=== PATIENT | female | born 1970 | race Caucasian/White ===

== ENCOUNTER → 2017-04-05 | Outpatient (CLI) | payer MEDICARE, MEDICAID ==
[~2017-04-05] MED LIST: HYDR-318 PO; VENL75CA58 PO
--- NOTE | 2017-04-06 12:24 | RADIOLOGY IMAGING REPORT ---
FACILITY: [facility] - [place] PATIENT NAME: CK RODRIGUEZ : [id number] MR: [id number] V: [id number] EXAM DATE: [id number] ORDERING PHYSICIAN: KESHAWN REYES TECHNOLOGIST: Lu Morales PROCEDURE:BILATERAL DIGITAL SCREENING MAMMOGRAM WITH CAD ASSISTED INTERPRETATION AND 3D BREAST TOMOSYNTHESIS. COMPARISON:None. This is the patient's baseline mammogram. INDICATIONS:SCREENING FINDINGS: A small amount of fibroglandular tissue is seen throughout the breasts. There is no demonstration of malignant appearing mass, malignant appearing calcification or other secondary sign of malignancy in either breast. DIAGNOSTIC CATEGORY 1--NEGATIVE. RECOMMENDATIONS: ROUTINE MAMMOGRAM AND CLINICAL EVALUATION. IMPRESSION: Bi-RADS 1: No significant abnormality is seen. Images were reviewed with R2CAD and 3D breast tomosynthesis. Dictated by: Trisha Real M.D. on 04/05/2017 at 16:22 Transcribed by: TATE on 04/05/2017 at 20:50 Approved by: Trisha Real M.D. on 04/06/2017 at 12:23 [facility]
== END ==
LOC: MAMO 03-22 01:30
PROVIDERS: ATTEND Physician Assistant
DX: Z12.31 Encounter for screening mammogram for malignant neoplasm of breast (principal)
CPT/HCPCS: 77063; 77067

== ENCOUNTER 2017-12-19 23:11 | Emergency (ER) | payer MEDICARE, MEDICAID ==
--- NOTE | 2017-12-19 23:14 | ER Report ---
History and Physical Time Seen By MD: 23:14 HPI/ROS CHIEF COMPLAINT: Right flank pain HISTORY OF PRESENT ILLNESS: 47-year-old female presents ambulatory to the ER complaining of severe onset of right flank pain for the last several hours. She notes onset of mild pain in her right flank at 3 PM yesterday. She's been vomiting multiple times. She is doubled over in pain, unable to stand up straight. She is holding her right flank. She notes 10/10 pain. She states a history of kidney stones in the past. REVIEW OF SYSTEMS: Respiratory: No cough, no dyspnea. Cardiovascular: No chest pain, no palpitations. Gastrointestinal: As above Musculoskeletal: As above Allergies: Coded Allergies: No Known Drug Allergies (Unverified , 01/18/15) Home Meds Active Scripts Ondansetron (ZOFRAN ODT) 4 Mg Tab.rapdis, 4 MG PO every 6 hours PRN for NAUSEA/VOMITING, #15 TAB TAKE 1 TABLET BY MOUTH EVERY 12 HOURS Prov:LALY LANG DO 12/20/17 Hydrocodone Bit/Acetaminophen (HYDROCODON-ACETAMINOPHEN 5-325) 1 Each Tablet, 1 EACH PO Q4-6H PRN for PAIN, #20 TAKE ONE TABLET BY MOUTH EVERY 4-6 HOURS NEEDED FOR PAIN Prov:LALY LANG DO 12/20/17 Discontinued Reported Medications Venlafaxine Hcl (EFFEXOR XR) 75 Mg Cap.er.24h, 225 MG PO QDAY 01/18/15 Discontinued Scripts Hydrocodone/Acetaminophen (Lortab 7.5-325 mg Tablet) 1 Each Tablet, 1-2 TAB PO Q6H for PAIN, #20 Prov:JAKE RODRIGUEZ DO 01/18/15 Past Medical/Surgical History Kidney stones, depression Reviewed Nurses Notes: Yes Old Medical Records Reviewed: Yes Hx Smoking: Yes Smoking Status: Current: Every Day Smoker Hx Substance Use Disorder: No Constitutional Vital Sign - Last 24 Hours 12/19/17 12/19/17 12/20/17 12/20/17 23:16 23:56 00:11 00:23 Temp 97.4 Pulse 80 91 82 Resp 22 B/P (MAP) 132/93 125/82 (96) Pulse Ox 98 88 99 O2 Delivery Room Air 12/20/17 12/20/17 12/20/17 12/20/17 00:26 00:40 00:41 01:00 Pulse 89 85 77 B/P (MAP) 125/92 (103) 120/82 (95) Pulse Ox 100 100 12/20/17 12/20/17 12/20/17 12/20/17 01:19 01:30 01:40 01:42 Pulse 86 B/P (MAP) 117/84 (95) 99/64 (76) 87/63 (71) Pulse Ox 98 12/20/17 02:00 Pulse 85 B/P (MAP) 99/57 (71) Pulse Ox 100 Intake and Output 0 12/19/17 12/19/17 12/20/17 15:00 23:00 07:00 Intake Total 1000 ml Balance 1000 ml Physical Exam Vital signs stable, afebrile, pulse ox normal General Appearance: The patient is alert, has no immediate need for airway protection and no current signs of toxicity. Moderate distress. Skin slightly pale, dry HEENT: Pupils equal and round no injection. oropharynx without redness or exudate Respiratory: Chest is non tender, lungs are clear to auscultation. Cardiac: regular rate and rhythm Gastrointestinal: Abdomen is soft and non tender, no masses, bowel sounds normal. + Right CVA tenderness Musculoskeletal: Neck: Neck is supple and non tender. Extremities have full range of motion and are non tender. Skin: No rashes or lesions. DIFFERENTIAL DIAGNOSIS: After history and physical exam differential diagnosis was considered for flank pain including but not limited to musculoskeletal causes, kidney stone, pyelonephritis, shingles, and intra-abdominal causes such as diverticulitis and appendicitis. Medical Decision Making Data Points Result Diagram: 12/19/17 2344 12/19/17 2344 Laboratory Hematology Test 12/19/17 23:44 12/20/17 00:25 Red Blood Count 4.97 M/uL (4.17-5.56) Mean Corpuscular Volume 80.1 fL (80.0-96.0) Mean Corpuscular Hemoglobin 28.4 pg (26.0-33.0) Mean Corpuscular Hemoglobin Concent 35.5 g/dL (32.0-36.0) Red Cell Distribution Width 13.1 % (11.5-14.5) Mean Platelet Volume 8.1 fL (7.2-11.1) Neutrophils (%) (Auto) 66.2 % (39.4-72.5) Lymphocytes (%) (Auto) 24.5 % (17.6-49.6) Monocytes (%) (Auto) 7.4 % (4.1-12.4) Eosinophils (%) (Auto) 0.0 % (0.4-6.7) Basophils (%) (Auto) 1.9 % (0.3-1.4) Nucleated RBC Relative Count (auto) 0.0 /100WBC Neutrophils # (Auto) 3.5 K/uL (2.0-7.4) Lymphocytes # (Auto) 1.3 K/uL (1.3-3.6) Monocytes # (Auto) 0.4 K/uL (0.3-1.0) Eosinophils # (Auto) 0.0 K/uL (0.0-0.5) Basophils # (Auto) 0.1 K/uL (0.0-0.1) Nucleated RBC Absolute Count (auto) 0.00 K/uL Sodium Level 138 mmol/L (137-145) Potassium Level 3.7 mmol/L (3.5-5.0) Chloride Level 105 mmol/L (98-107) Carbon Dioxide Level 22 mmol/L (22-31) Blood Urea Nitrogen 18 mg/dl (7-18) Creatinine 0.80 mg/dl (0.52-1.04) Glomerular Filtration Rate Calc > 60.0 Random Glucose 95 mg/dl (75-110) Calcium Level 9.1 mg/dl (8.4-10.2) Total Bilirubin 0.7 mg/dl (0.2-1.3) Aspartate Amino Transf (AST/SGOT) 22 U/L (0-35) Alanine Aminotransferase (ALT/SGPT) 31 U/L (0-56) Alkaline Phosphatase 49 U/L (0-126) Total Protein 6.9 g/dl (6.3-8.2) Albumin 3.9 g/dl (3.5-5.0) Amylase Level 47 U/L (0-110) Lipase 71 U/L (23-300) Urine Color Yellow Urine Clarity Slightly-cloudy Urine pH 5.0 pH (4.8-9.5) Urine Specific [place] 1.026 Urine Protein 30 mg/dL (NEGATIVE) Urine Glucose (UA) Negative mg/dL (NEGATIVE) Urine Ketones 80 mg/dL (NEGATIVE) Urine Blood Large (NEGATIVE) Urine Nitrite Negative (NEGATIVE) Urine Bilirubin Negative (NEGATIVE) Urine Urobilinogen 2.0 mg/dL (0.2-1.9) Urine Leukocyte Esterase Negative (NEGATIVE) Urine RBC 213 /HPF (0-2/HPF) Urine WBC 2 /HPF (0-5/HPF) Urine Squamous Epithelial Cells Many /LPF (</=FEW) Urine Bacteria Few /HPF (NONE-FEW) Urine Mucus Few /HPF (NONE-FEW) Urine HCG, Qualitative Negative (NEGATIVE) Chemistry Test 12/19/17 23:44 12/20/17 00:25 White Blood Count 5.3 k/uL (4.5-11.0) Red Blood Count 4.97 M/uL (4.17-5.56) Hemoglobin 14.1 g/dL (12.0-16.0) Hematocrit 39.8 % (34.0-47.0) Mean Corpuscular Volume 80.1 fL (80.0-96.0) Mean Corpuscular Hemoglobin 28.4 pg (26.0-33.0) Mean Corpuscular Hemoglobin Concent 35.5 g/dL (32.0-36.0) Red Cell Distribution Width 13.1 % (11.5-14.5) Platelet Count 241 K/uL (150-450) Mean Platelet Volume 8.1 fL (7.2-11.1) Neutrophils (%) (Auto) 66.2 % (39.4-72.5) Lymphocytes (%) (Auto) 24.5 % (17.6-49.6) Monocytes (%) (Auto) 7.4 % (4.1-12.4) Eosinophils (%) (Auto) 0.0 % (0.4-6.7) Basophils (%) (Auto) 1.9 % (0.3-1.4) Nucleated RBC Relative Count (auto) 0.0 /100WBC Neutrophils # (Auto) 3.5 K/uL (2.0-7.4) Lymphocytes # (Auto) 1.3 K/uL (1.3-3.6) Monocytes # (Auto) 0.4 K/uL (0.3-1.0) Eosinophils # (Auto) 0.0 K/uL (0.0-0.5) Basophils # (Auto) 0.1 K/uL (0.0-0.1) Nucleated RBC Absolute Count (auto) 0.00 K/uL Glomerular Filtration Rate Calc > 60.0 Calcium Level 9.1 mg/dl (8.4-10.2) Total Bilirubin 0.7 mg/dl (0.2-1.3) Aspartate Amino Transf (AST/SGOT) 22 U/L (0-35) Alanine Aminotransferase (ALT/SGPT) 31 U/L (0-56) Alkaline Phosphatase 49 U/L (0-126) Total Protein 6.9 g/dl (6.3-8.2) Albumin 3.9 g/dl (3.5-5.0) Amylase Level 47 U/L (0-110) Lipase 71 U/L (23-300) Urine Color Yellow Urine Clarity Slightly-cloudy Urine pH 5.0 pH (4.8-9.5) Urine Specific [place] 1.026 Urine Protein 30 mg/dL (NEGATIVE) Urine Glucose (UA) Negative mg/dL (NEGATIVE) Urine Ketones 80 mg/dL (NEGATIVE) Urine Blood Large (NEGATIVE) Urine Nitrite Negative (NEGATIVE) Urine Bilirubin Negative (NEGATIVE) Urine Urobilinogen 2.0 mg/dL (0.2-1.9) Urine Leukocyte Esterase Negative (NEGATIVE) Urine RBC 213 /HPF (0-2/HPF) Urine WBC 2 /HPF (0-5/HPF) Urine Squamous Epithelial Cells Many /LPF (</=FEW) Urine Bacteria Few /HPF (NONE-FEW) Urine Mucus Few /HPF (NONE-FEW) Urine HCG, Qualitative Negative (NEGATIVE) Urinalysis Test 12/20/17 00:25 Urine Color Yellow Urine Clarity Slightly-cloudy Urine pH 5.0 pH (4.8-9.5) Urine Specific [place] 1.026 Urine Protein 30 mg/dL (NEGATIVE) Urine Glucose (UA) Negative mg/dL (NEGATIVE) Urine Ketones 80 mg/dL (NEGATIVE) Urine Blood Large (NEGATIVE) Urine Nitrite Negative (NEGATIVE) Urine Bilirubin Negative (NEGATIVE) Urine Urobilinogen 2.0 mg/dL (0.2-1.9) Urine Leukocyte Esterase Negative (NEGATIVE) Urine RBC 213 /HPF (0-2/HPF) Urine WBC 2 /HPF (0-5/HPF) Urine Squamous Epithelial Cells Many /LPF (</=FEW) Urine Bacteria Few /HPF (NONE-FEW) Urine Mucus Few /HPF (NONE-FEW) Urine HCG, Qualitative Negative (NEGATIVE) EKG/Imaging Imaging Results: CT scan of the abdomen and pelvis without IV contrast was obtained. The results of the study are CT of the abdomen and pelvis without contrast: Indication: Right flank pain. History of renal calculi. Technique: Helical CT was performed through the abdomen and pelvis without contrast. Multiplanar reconstructions are reviewed. One of the following dose optimization techniques was utilized in the performance of this exam: Automated exposure control; adjustment of the mA and/or kV according to the patient's size; or use of an iterative reconstruction technique. Specific details can be referenced in the facility's radiology CT exam operational policy. Comparison: None. Lower lung roy: No parenchymal or pleural abnormality is identified. Liver: Normal in size, shape, and density. Gallbladder/biliary tree: The gallbladder is normal in size and homogeneous in density. The bile ducts are normal in caliber. Pancreas: Normal in size, shape, and density. Spleen: Normal in size, shape, and density. Adrenal glands: Within normal limits. Kidneys/urinary bladder: There is a 4 mm nonobstructing calculus at the lower pole of the right kidney. There is mild dilatation of the right intrarenal collecting structures and right ureter, consistent with recent obstruction. However, there is no evidence of calculus within the right ureter. There is a 3 mm calculus in the bladder lumen, which may have recently passed. The right kidney is otherwise unremarkable. There is a tiny nonobstructing calculus in the left kidney. There is no evidence of left ureteral calculus or obstruction. The left kidney is otherwise unremarkable. The bladder is otherwise unremarkable. Intestinal structures: Unremarkable, as visualized. There are no signs of obstruction or focal inflammatory changes. Pelvis: The uterus and adnexal structures are unremarkable, as visualized. Aorta and vascular structures: Within normal limits. Ascites or fluid collections: None seen. Skeletal structures: There is an intramedullary anita in the proximal right femur. No acute skeletal deformity is identified. Impression: There is a 4 mm nonobstructing calculus in the right kidney. There is mild dilatation of the right intrarenal collecting structures and right ureter, consistent with recent obstruction. No right ureteral calculi are identified. However, there is a 3 mm calculus in the bladder lumen, which may have recently passed. The study was read by the radiologist. I viewed the images myself on the PACS system. ED Course/Re-evaluation Clinical Indication for ER IV: Hydration, IV Access ED Course Patient was admitted to an examination room. H&P was done. The differential diagnoses was considered. On clinical examination. Patient has right CVA tenderness. Clinically she has a kidney stone. She is treated with IV fluid hydration, Zofran, Toradol, Dilaudid. She continues to have vomiting and pain. She's given Phenergan and additional Dilaudid. There is gross hematuria noted on her urinalysis. She sent for a CT scan of the abdomen and pelvis without contrast, which shows a recently passed stone in the right ureter and there is a 3 mm stone in the bladder. Consistent with her clinical presentation. She reports her pain is much improved. Patient's discharged home with hydrocodone and Zofran for symptomatically relief. She is advised to follow-up with urology. Decision to Disposition Date: Dec 20, 2017 Decision to Disposition Time: 02:05 Depart Departure Latest Vital Signs Vital Signs Date Time Temp Pulse Resp B/P (MAP) Pulse Ox O2 Delivery O2 Flow Rate FiO2 12/20/17 02:00 85 99/57 (71) 100 12/19/17 23:16 97.4 22 Room Air Impression: Primary Impression: Renal colic on right side Additional Impression: History of kidney stones Condition: Improved Disposition: HOME OR SELF-CARE Referrals: KESHAWN REYES PA-C (PCP) JUNG HILL MD DOMENICA LITTLEJOHN MD New Scripts Ondansetron (ZOFRAN ODT) 4 Mg Tab.rapdis 4 MG PO every 6 hours PRN for NAUSEA/VOMITING, #15 TAB TAKE 1 TABLET BY MOUTH EVERY 12 HOURS Prov: LALY LANG DO 12/20/17 Hydrocodone Bit/Acetaminophen (HYDROCODON-ACETAMINOPHEN 5-325) 1 Each Tablet 1 EACH PO Q4-6H PRN for PAIN, #20 TAKE ONE TABLET BY MOUTH EVERY 4-6 HOURS NEEDED FOR PAIN Prov: LALY LANG DO 12/20/17 Patient Instructions: Kidney Stones (ED) Additional Instructions: Follow-up with urologist this week Problem Qualifiers LALY LANG DO Dec 19, 2017 23:14
[2017-12-19] MEDS ORDERED: NS(*) 0.9% 1000 ML BAG 1,000 ML IV ONE (23:17)
[2017-12-19] MEDS ORDERED: HYDROMORPHONE HCL 1 MG/ML SYRINGE IVP ONE (23:20)
[2017-12-19] MEDS ORDERED: KETOROLAC 30 MG/ML VIAL IVP ONE (23:20)
[2017-12-19] MEDS ORDERED: ONDANSETRON 4 MG/2 ML VIAL IVP ONE (23:20)
[2017-12-19 23:55] LABS: PLATELET COUNT, AUTOMATED 241 K/uL (150-450)
[2017-12-20] MEDS ORDERED: PROMETHAZINE 25 MG/ML 1 ML AMP IVP ONE (00:15)
[2017-12-20] MEDS ORDERED: HYDROMORPHONE HCL 1 MG/ML SYRINGE IVP ONE (00:15)
[2017-12-20 02:00] VITALS: BP 99/57
--- NOTE | 2017-12-20 02:00 | RADIOLOGY IMAGING REPORT ---
FACILITY: [facility] - [place] PATIENT NAME: Kemi Vidal : 1970 MR: [id number] V: [id number] EXAM DATE: ORDERING PHYSICIAN: LALY LANG TECHNOLOGIST: Location: [facility] [place] Patient: Kemi Vidal : 1970 Visit/Account:[id number] Date of Sevice: 12/20/2017 CT of the abdomen and pelvis without contrast: Indication: Right flank pain. History of renal calculi. Technique: Helical CT was performed through the abdomen and pelvis without contrast. Multiplanar rec onstructions are reviewed. One of the following dose optimization techniques was utilized in the performance of this exam: Autom ated exposure control; adjustment of the mA and/or kV according to the patient's size; or use of an i terative reconstruction technique. Specific details can be referenced in the facility's radiology CT exam operational policy. Comparison: None. Lower lung roy: No parenchymal or pleural abnormality is identified. Liver: Normal in size, shape, and density. Gallbladder/biliary tree: The gallbladder is normal in size and homogeneous in density. The bile duct s are normal in caliber. Pancreas: Normal in size, shape, and density. Spleen: Normal in size, shape, and density. Adrenal glands: Within normal limits. Kidneys/urinary bladder: There is a 4 mm nonobstructing calculus at the lower pole of the right kidne y. There is mild dilatation of the right intrarenal collecting structures and right ureter, consisten t with recent obstruction. However, there is no evidence of calculus within the right ureter. There i s a 3 mm calculus in the bladder lumen, which may have recently passed. The right kidney is otherwise unremarkable. There is a tiny nonobstructing calculus in the left kidney. There is no evidence of left ureteral kurt culus or obstruction. The left kidney is otherwise unremarkable. The bladder is otherwise unremarkable. Intestinal structures: Unremarkable, as visualized. There are no signs of obstruction or focal inflam matory changes. Pelvis: The uterus and adnexal structures are unremarkable, as visualized. Aorta and vascular structures: Within normal limits. Ascites or fluid collections: None seen. Skeletal structures: There is an intramedullary anita in the proximal right femur. No acute skeletal de formity is identified. Impression: There is a 4 mm nonobstructing calculus in the right kidney. There is mild dilatation of the right intrarenal collecting structures and right ureter, consistent with recent obstruction. No r ight ureteral calculi are identified. However, there is a 3 mm calculus in the bladder lumen, which m ay have recently passed. Report Dictated By: Noamn Ahumada MD at 12/20/2017 1:42 AM Report E-Signed By: Noman Ahumada MD at 12/20/2017 1:56 AM WSN:[id number]
[2017-12-20] MEDS ORDERED: LOR5/325 PO (02:19)
[2017-12-20] MEDS ORDERED: ONDA4TAB PO (02:19)
[2017-12-20] MEDS ORDERED: ACET/HYDROC 5/325MG TH ER ONLY 2 TAB/BOTTLE PO ONE (02:20)
[2017-12-20] MEDS ORDERED: ONDANSETRON 4 MG ODT TH SL ONE (02:20)
== END 2017-12-20 02:30 | disposition home or self-care (01) ==
LOC: ER 23:45
DX: N20.0 Calculus of kidney (principal); N23 Unspecified renal colic; Z87.442 Personal history of urinary calculi
CPT/HCPCS: 36415; 74176; 81001; 81025; 82150; 83690; 85025; 96361; 96374; 96375; 96376; 99284; J1170; J1885; J2405; J2550; J7030; Q0162; 82040; 82247; 82310; 82374; 82435; 82565; 82947; 84075; 84132; 84155; 84295; 84450; 84460; 84520; S0119

== ENCOUNTER 2018-01-13 05:27 | Emergency (ER) | payer MEDICARE, MEDICAID ==
[~2018-01-13 05:27] MED LIST changes: +LOR5/325 PO; +ONDA4TAB PO
--- NOTE | 2018-01-13 05:29 | ER Report ---
History and Physical Time Seen By MD: 05:29 Allergies: Coded Allergies: No Known Drug Allergies (Unverified , 01/18/15) Home Meds Active Scripts Ondansetron (ZOFRAN ODT) 4 Mg Tab.rapdis, 4 MG PO every 6 hours PRN for NAUSEA/VOMITING, #15 TAB TAKE 1 TABLET BY MOUTH EVERY 12 HOURS Prov:LALY LANG DO 12/20/17 Hydrocodone Bit/Acetaminophen (HYDROCODON-ACETAMINOPHEN 5-325) 1 Each Tablet, 1 EACH PO Q4-6H PRN for PAIN, #20 TAKE ONE TABLET BY MOUTH EVERY 4-6 HOURS NEEDED FOR PAIN Prov:LALY LANG DO 12/20/17 Reviewed Nurses Notes: Yes Old Medical Records Reviewed: Yes Hx Smoking: Yes Smoking Status: Current: Every Day Smoker Hx Substance Use Disorder: No Depart Departure Condition: Stable Disposition: HOME OR SELF-CARE Referrals: KESHAWN REYES PA-C (PCP) LALY LANG DO Jan 13, 2018 05:29
== END 2018-01-13 05:35 | disposition left against medical advice (07) ==
LOC: ER 05:35
DX: Z02.9 Encounter for administrative examinations, unspecified (principal)

== ENCOUNTER 2018-09-02 17:29 | Emergency (ER) | payer MEDICAID, MEDICARE ==
[2018-09-02 17:37] VITALS: BP 133/89
--- NOTE | 2018-09-02 17:39 | ER Report ---
History and Physical Time Seen By MD: 17:37 HPI/ROS CHIEF COMPLAINT: Skin infection HISTORY OF PRESENT ILLNESS: 48 year old female presents with concern for infection in the skin at the left antecubital area and right lower leg. Patient reports redness, pain, and swelling that developed around her right lower leg about 1 week ago. Reports pain is sharp and extends up her leg and down to her foot. Patient reports she has hx of multiple right leg surgeries; last surgery was approximately 1 year ago. Left antecubital pain started about 3 days ago. She noticed swelling and pain at this area. She does have a hx of IV meth use. She does inject at the antecubital areas. Last dose of meth was this morning. Reports she usually uses clean needles, but will reuse her own needles if she is out of clean needles, however, she does wish to have HIV and hepatitis testing done this evening. REVIEW OF SYSTEMS: Constitutional: Denies fever HENT: Reports slight dizziness. No headaches. No vision changes. Respiratory: No cough, no dyspnea. Cardiovascular: No chest pain, no palpitations. Gastrointestinal: No vomiting, no abdominal pain. Musculoskeletal: No back pain. Skin: Right lower leg and left antecubital erythema, swelling, and pain as noted above. Allergies: Coded Allergies: No Known Drug Allergies (Unverified , 01/18/15) Home Meds Active Scripts Cephalexin 500 Mg Tab (KEFLEX 500 MG TAB) 500 Mg Tablet, 500 MG PO Q6H for 7 Days, #28 TAB Prov:JOANNE MONDRAGON [employer] 09/02/18 Ondansetron (ZOFRAN ODT) 4 Mg Tab.rapdis, 4 MG PO every 6 hours PRN for NAUSEA/VOMITING, #15 TAB TAKE 1 TABLET BY MOUTH EVERY 12 HOURS Prov:LALY LANG DO 12/20/17 Hydrocodone Bit/Acetaminophen (HYDROCODON-ACETAMINOPHEN 5-325) 1 Each Tablet, 1 EACH PO Q4-6H PRN for PAIN, #20 TAKE ONE TABLET BY MOUTH EVERY 4-6 HOURS NEEDED FOR PAIN Prov:LALY LANG DO 12/20/17 Past Medical/Surgical History No significant past medical hx. Patient with hx of multiple right and left leg orthopedic surgeries. Reviewed Nurses Notes: Yes Hx Smoking: Yes Smoking Status: Current: Every Day Smoker Hx Substance Use Disorder: No Constitutional Vital Sign - Last 24 Hours 09/02/18 09/02/18 09/02/18 09/02/18 17:33 17:37 17:59 18:34 Temp 98.2 Pulse 95 90 ??? Resp 16 B/P (MAP) 133/89 (104) 133/89 Pulse Ox 95 97 O2 Delivery Room Air 09/02/18 09/02/18 09/02/18 19:04 19:34 20:04 Pulse ? Physical Exam General Appearance: The patient is alert, has no immediate need for airway protection and no current signs of toxicity. Eyes: Pupils equal and round no injection. Respiratory: Chest is non tender, lungs are clear to auscultation. Cardiac: regular rate and rhythm Gastrointestinal: Abdomen is soft and non tender, no masses, bowel sounds normal. Musculoskeletal: Neck: Neck is supple and non tender. Extremities: Right lower leg above ankle erythemic, warm, and swollen. Right foot with 2+ pitting edema. Left antecubital area has erythema, warmth, and s welling. Firm nodule felt under the skin at the proximal aspect of area of erythema. Skin: No rashes or lesions. DIFFERENTIAL DIAGNOSIS: After history and physical exam differential diagnosis was considered for right lower leg cellulitis, left arm cellulitis, left antecubital hematoma. Medical Decision Making Data Points Result Diagram: 09/02/18184909/02/18 1850 Laboratory Hematology Test 09/02/18 18:50 Red Blood Count 5.46 M/uL (4.17-5.56) Mean Corpuscular Volume 81.7 fL (80.0-96.0) Mean Corpuscular Hemoglobin 29.2 pg (26.0-33.0) Mean Corpuscular Hemoglobin Concent 35.7 g/dL (32.0-36.0) Red Cell Distribution Width 13.1 % (11.5-14.5) Mean Platelet Volume 8.7 fL (7.2-11.1) Neutrophils (%) (Auto) 70.0 % (39.4-72.5) Lymphocytes (%) (Auto) 21.6 % (17.6-49.6) Monocytes (%) (Auto) 7.3 % (4.1-12.4) Eosinophils (%) (Auto) 0.7 % (0.4-6.7) Basophils (%) (Auto) 0.4 % (0.3-1.4) Nucleated RBC Relative Count (auto) 0.2 /100WBC Neutrophils # (Auto) 6.3 K/uL (2.0-7.4) Lymphocytes # (Auto) 1.9 K/uL (1.3-3.6) Monocytes # (Auto) 0.7 K/uL (0.3-1.0) Eosinophils # (Auto) 0.1 K/uL (0.0-0.5) Basophils # (Auto) 0.0 K/uL (0.0-0.1) Nucleated RBC Absolute Count (auto) 0.02 K/uL Sodium Level 139 mmol/L (137-145) Potassium Level 4.0 mmol/L (3.5-5.0) Chloride Level 104 mmol/L (98-107) Carbon Dioxide Level 25 mmol/L (22-31) Blood Urea Nitrogen 20 mg/dl (7-18) Creatinine 0.80 mg/dl (0.52-1.04) Glomerular Filtration Rate Calc > 60.0 Random Glucose 91 mg/dl (75-110) Calcium Level 9.4 mg/dl (8.4-10.2) Total Bilirubin 0.6 mg/dl (0.2-1.3) Aspartate Amino Transf (AST/SGOT) 25 U/L (0-35) Alanine Aminotransferase (ALT/SGPT) 35 U/L (0-56) Alkaline Phosphatase 74 U/L (0-126) Total Protein 7.6 g/dl (6.3-8.2) Albumin 4.1 g/dl (3.5-5.0) HIV (1&2) Antibody Negative (NEGATIVE) Chemistry Test 09/02/18 18:50 White Blood Count 9.0 k/uL (4.5-11.0) Red Blood Count 5.46 M/uL (4.17-5.56) Hemoglobin 15.9 g/dL (12.0-16.0) Hematocrit 44.6 % (34.0-47.0) Mean Corpuscular Volume 81.7 fL (80.0-96.0) Mean Corpuscular Hemoglobin 29.2 pg (26.0-33.0) Mean Corpuscular Hemoglobin Concent 35.7 g/dL (32.0-36.0) Red Cell Distribution Width 13.1 % (11.5-14.5) Platelet Count 316 K/uL (150-450) Mean Platelet Volume 8.7 fL (7.2-11.1) Neutrophils (%) (Auto) 70.0 % (39.4-72.5) Lymphocytes (%) (Auto) 21.6 % (17.6-49.6) Monocytes (%) (Auto) 7.3 % (4.1-12.4) Eosinophils (%) (Auto) 0.7 % (0.4-6.7) Basophils (%) (Auto) 0.4 % (0.3-1.4) Nucleated RBC Relative Count (auto) 0.2 /100WBC Neutrophils # (Auto) 6.3 K/uL (2.0-7.4) Lymphocytes # (Auto) 1.9 K/uL (1.3-3.6) Monocytes # (Auto) 0.7 K/uL (0.3-1.0) Eosinophils # (Auto) 0.1 K/uL (0.0-0.5) Basophils # (Auto) 0.0 K/uL (0.0-0.1) Nucleated RBC Absolute Count (auto) 0.02 K/uL Glomerular Filtration Rate Calc > 60.0 Calcium Level 9.4 mg/dl (8.4-10.2) Total Bilirubin 0.6 mg/dl (0.2-1.3) Aspartate Amino Transf (AST/SGOT) 25 U/L (0-35) Alanine Aminotransferase (ALT/SGPT) 35 U/L (0-56) Alkaline Phosphatase 74 U/L (0-126) Total Protein 7.6 g/dl (6.3-8.2) Albumin 4.1 g/dl (3.5-5.0) HIV (1&2) Antibody Negative (NEGATIVE) ED Course/Re-evaluation ED Course Upon arrival to the ED, patient admitted to an exam room, hx and physical performed, differentials considered. Patient presents with concern for infection in the skin at the left antecubital area and right lower leg. Patient reports redness, pain, and swelling that developed around her right lower leg about 1 week ago. Reports pain is sharp and extends up her leg and down to her foot. Patient reports she has hx of multiple right leg surgeries; last surgery was approximately 1 year ago. Left antecubital pain started about 3 days ago. She noticed swelling and pain at this area. She does have a hx of IV meth use. She does inject at the antecubital areas. Last dose of meth was this morning. Reports she usually uses clean needles, but will reuse her own needles if she is out of clean needles, however, she does wish to have HIV and hepatitis testing done this evening. Denies nausea, vomiting, headache, fevers. She reports some dizziness and lightheadedness. On exam, lungs are clear, heart rate and rhythm regular. Right lower leg above ankle erythemic, warm, and swollen. Right foot with 2+ pitting edema. Left antecubital area has erythema, warmth, and swelling. Firm nodule felt under the skin at the proximal aspect of area of erythema. She did agree to talk with [facility] regarding resources to help her quit use of meth. IV started. CBC, CMP, HIV, hepatitis B, hepatitis C drawn. 1 gram rocephin given. WBC 9.0 with no left shift. CMP benign. HIV negative. Will send patient home with a 7 day course of Keflex and have her follow-up with her PCP next week. She received resources from [facility] for her IV drug use. Patient agrees with plan of care. Decision to Disposition Date: Sep 02, 2018 Decision to Disposition Time: 19:55 Depart Departure Latest Vital Signs Vital Signs Date Time Temp Pulse Resp B/P (MAP) Pulse Ox O2 Delivery O2 Flow Rate FiO2 09/02/18 20:04 ??? 09/02/18 17:59 97 09/02/18 17:37 98.2 16 133/89 Room Air Impression: Primary Impression: Cellulitis of right lower extremity without foot Additional Impression: Cellulitis of left arm Condition: Condition Unchanged Disposition: HOME OR SELF-CARE Referrals: KESHAWN REYES PA-C (PCP) New Scripts Cephalexin 500 Mg Tab (KEFLEX 500 MG TAB) 500 Mg Tablet 500 MG PO Q6H for 7 Days, #28 TAB Prov: JOANNE MONDRAGON WALTER 09/02/18 Patient Instructions: Cellulitis (ED) Additional Instructions: Please drink plenty of water and get plenty of rest. Please take your antibiotics as prescribed for the entire 7 days. Please follow-up with your primary care provider on Tuesday. Return to the ER if the redness, swelling, and pain on your right leg and left arm do not improve. Also return if you develop a fever or for any other concern. Problem Qualifiers JOANNE MONDRAGON Sep 02, 2018 17:39
[2018-09-02] MEDS ORDERED: cefTRIAXone 1 GM VIAL IVP ONE (17:55)
[2018-09-02 19:22] LABS: PLATELET COUNT, AUTOMATED 316 K/uL (150-450)
[2018-09-02] MEDS ORDERED: CEPH500T7 PO (19:53)
== END 2018-09-02 20:11 | disposition home or self-care (01) ==
LOC: ER 17:42
DX: L03.115 Cellulitis of right lower limb (principal); L03.114 Cellulitis of left upper limb; F17.210 Nicotine dependence, cigarettes, uncomplicated; Z79.899 Other long term (current) drug therapy
CPT/HCPCS: 85025; 86706; 87340; 96374; 99283; G0432; G0472; J0696; 82040; 82247; 82310; 82374; 82435; 82565; 82947; 84075; 84132; 84155; 84295; 84450; 84460; 84520; 86703; 86803